=== PATIENT | male | born 1955 | race Caucasian/White ===

== ENCOUNTER 2024-11-18 18:27 | Emergency (ER) | payer OTHER, SELFPAY ==
[2024-11-18 18:29] VITALS: BMI 29.5
[2024-11-18 18:37] VITALS: BP 156/90
[2024-11-18 18:54] LABS: % Eosinophils 1.1 % (0-6); % Immature Granulocytes 0.3 % (0-0.5); % Lymphocytes 27.2 % (20.5-51.1); % Monocytes 7.5 % (1.7-9.3); % Neutrophils 62.9 % (42.2-75.2); Absolute Basophils 0.1 10^3/uL (0-0.2); Absolute Eosinophils 0.1 10^3/uL (0-0.7); Absolute Lymphocytes 2.5 10^3/uL (1.2-3.4); Absolute Monocytes 0.7 10^3/uL (0.1-0.6); Absolute Neutrophils 5.8 10^3/uL (1.4-6.5); Hematocrit 41.1 % (39.0-52.0); Hemoglobin 14.1 g/dL (13.0-18.0); Mean Corp Hgb Conc. 34.3 g/dL (33.0-37.0); Mean Corpuscular Hgb 33.1 pg (27.0-31.0); Mean Corpuscular Volume 96.5 fL (80.0-94.0); Mean Platelet Volume 9.2 fL (7.4-10.4); Nucleated Red Blood Cells % 0 % (-); Platelet Count 364 10^3/uL (130-400); Red Blood Cell Count 4.26 10^6/uL (4.70-6.10); Red Cell Dist. Width 12.6 % (11.5-14.5); White Blood Cell Count 9.3 10^3/uL (4.8-10.8)
[2024-11-18 19:00] VITALS: BP 118/88
[2024-11-18 19:16] LABS: ALT (SGPT) 35 U/L (0-50); AST (SGOT) 42 U/L (17-59); Albumin 5.1 g/dl (3.5-5.0); Alkaline Phosphatase 75 U/L (38-126); Blood Urea Nitrogen 16 mg/dl (9-20); Calcium 9.7 mg/dl (8.4-10.2); Carbon Dioxide 21 mmol/L (22-30); Chloride 100 mmol/L (98-107); Estimated Creatinine Clearance > 125 ml/min; Glucose 115 mg/dl (70-99); Potassium 4.1 mmol/L (3.5-5.1); Sodium 138 mmol/L (135-145); Total Bilirubin 0.3 mg/dl (0.2-1.3); eGFR > 60.00
--- NOTE | 2024-11-18 20:22 | ED.MUSCINJ ---
HPI-Injury
General
Chief Complaint: Fall
Source: patient
Exam Limitations: none
Time Seen by Provider: 11/18/24 19:14
Nursing documentation reviewed up to this point in time: agreed with
History of Present Illness-Injury
Is this injury a work related problem?: No
Is pt an associate of [facility]/[place]?: No
Initial Injury comments:
Patient to ED after fall. States he was attempting to transfer from wheelchair to chair and left leg gave out. States he slid to ground. Denies hitting his head. States he has had pain to left leg from hip to foot since . No prior
work-up. Brought to ED via EMS. Hemiplegia from CVA 2016
Past History
Past History
ED Past Medical History: Arrthythmia (Atrial fibrillation), Asthma, CVA (05/14/2017) and HTN
ED Past Surgical History: Orthopedic (Cervical fusion) and Other (Right carotid artery stent)
Social History
Tobacco: Non-smoker
Alcohol: None
Drug: None
Personal:
Living: with family
Employment: Employed
Family History
Family History: Other (Noncontributory)
Review of Systems
Review of Systems
Allergies reviewed?: Yes
All Other Systems: ROS reviewed and negative except as documented in HPI and ROS
Constitutional: Reports no symptoms
EENT: Reports no symptoms
Respiratory: Reports no symptoms
Cardiac: Reports no symptoms
ABD/GI: Reports no symptoms
: Reports no symptoms
Musculoskeletal: Reports joint pain (Pain left leg hip to foot)
Skin: Reports no symptoms
Neurological: Reports no symptoms
Psychiatric: Reports no symptoms
Musculoskeletal Injury Exam
Musculoskeletal Injury Exam
Left Hip:
Pain with Movement?: Moderate
Tender to palpation?: None
Soft tissue swelling?: None
External deformity and angulation?: None
Joint effusion?: None
Hematoma-local bleeding into tissue?: None
Crepitus with movement?: No
Malalignment/deformity?: No
Range of motion: Limited (hemiplegia)
Distal skin color and temperature: normal-warm & good color
Capillary Refill: normal
Normal distal neurovascular exam?: Yes
Left Knee:
Pain with Movement?: Moderate
Tender to palpation?: None
External deformity and angulation?: None
Joint effusion?: None
Contusion?: Mild
Hematoma-local bleeding into tissue?: Mild
Strain- Sprain- Tear (Connective tissue injury)?: None
Crepitus with movement?: No
Joint instability?: No
Malalignment/deformity?: No
Range of motion: Limited (hemiplegia)
Distal skin color and temperature: normal-warm & good color
Capillary Refill: normal
Normal distal neurovascular exam?: Yes
Left Lower Leg:
Pain with Movement?: Mild
Tender to palpation?: None
Soft tissue swelling?: None
External deformity and angulation?: None
Joint effusion?: None
Contusion?: Mild
Hematoma-local bleeding into tissue?: None
Strain- Sprain- Tear (Connective tissue injury)?: None
Crepitus with movement?: No
Joint instability?: No
Malalignment/deformity?: No
Range of motion: Limited (hemiplegia)
Distal skin color and temperature: normal-warm & good color
Capillary Refill: normal
Normal distal neurovascular exam?: Yes
Phy Exam
General Physical Exam
General Presentation: well appearing and mild distress
General age: appears stated age
General Skin: warm
General Habitus: normal
General Mental: alert
General Hydration: appears well hydrated
Musculoskeletal Exam
Musculoskeletal Exam: neuro vasc intact and other (small abrasion to left knee. No left leg joint swelling, no erythema. )
Skin Exam
Skin Exam: normal color, warm/dry and no rash
Psychiatric Exam
Psychiatric Exam: normal mood/affect
Injury Course
Orders/Labs/Results
Orders:
Orders
11/18/24 18:39
Complete Blood Count/With Diff Urgent
Comprehensive Metabolic Panel Urgent
11/18/24 19:20
CR Leg Tibia/fibula Left 2 Vw Urgent
Comment:
Reason For Exam: pain, fall
Femur, Left 2 View [CR Femur - Left Min 2 Vw] Urgent
Comment:
Reason For Exam: fall
Hip, Left 2-3 Views [CR Hip - LT w/wo Pel 2-3 Vw*] Urgent
Comment:
Reason For Exam: fall
Include a pelvis x-ray?: Yes
11/18/24 20:18
Oxycodone [Roxicodone] 5 mg PO NOW STA
Prednisone [Deltasone] 40 mg PO NOW STA
Abnormal Lab Results
11/18/24
18:39
RBC 4.26 L 10^6/uL
(4.70-6.10)
MCV 96.5 H fL
(80.0-94.0)
MCH 33.1 H pg
(27.0-31.0)
Absolute Monos (auto) 0.7 H 10^3/uL
(0.1-0.6)
Carbon Dioxide 21 L mmol/L
(22-30)
Creatinine 0.6 L mg/dL
(0.7-1.3)
Glucose 115 H mg/dl
(70-99)
Albumin 5.1 H g/dl
(3.5-5.0)
11/18/24 18:39
11/18/24 18:39
*Radiology
Radiology exam reviewed: radiology read reviewed
*Pulse Oximetry
Patient hypoxic: no
*Critical Care Note
Total Time (30-74mins, 75-104mins- exclusive of procedures): Not Applicable
Update Note
Update Note:
Patien tto ED for eval after left leg gave out and he slid to floor. Denies hitting his head. Hx of hemiplegia due to CVA in 2016. Paralyzed on let side. Has been having intermittent left leg pain since september. no evidence of fracture on
xrays. No joint sweling or erythema. Discussed radicular pain as possible cause of discomfort. Will try course of prednisone, follow up with PCP on Thursday. Given instructions on s/s to return to ED and he is agreeable to plan.
ED Attending Note
-
Portions of this chart may have been created with voice recognition software.� Occasional wrong word or��sound alike� substitutions may have occurred due to the inherent limitations of voice recognition software.
Discharge Plan
Departure
Patient Disposition: Home (Routine Discharge)
Date of Disposition: 11/18/24
Time of Disposition: 20:18
Patient with high blood pressure during this ER visit?: No
Condition: Good
Covid-19: Not Applicable
Discharge Problem:
Leg pain
Instructions: Contusion (DC), Radiculopathy of the neck and back (including sciatica) - Discharge instructions
Prescriptions:
New
prednisone 10 mg Tablet
See Rx Instructions .ROUTE .COMPLEX Qty: 30 0RF
Rx Instructions:
Take By Mouth:
40 mg daily x3 days, 30 mg daily x3 days,
20 mg daily x3 days, 10 mg daily x3 days.
oxycodone 5 mg capsule
5 mg PO Q4H PRN (Reason: Pain) Qty: 12 0RF
No Action
atorvastatin 40 MG tablet
40 mg PO QPM Qty: 30 0RF
carvedilol 12.5 MG tablet
12.5 mg PO BID
fenofibrate nanocrystallized 48 MG tablet
48 mg PO DAILY
aspirin 81 MG tablet,delayed release (DR/EC)
81 mg PO DAILY
Xarelto 20 MG tablet
20 mg PO DAILY
amlodipine 10 MG tablet
10 mg PO DAILY
hydralazine 100 MG tablet
100 mg PO TID
oxcarbazepine 600 MG tablet
600 mg PO BID
lisinopril 40 MG tablet
40 mg PO DAILY
dofetilide 500 MCG capsule
500 mcg PO Q12
Activity Restrictions/Additional Instructions:
Follow up with your family doctor
Interventions
Interventions:
*Risk Screen - Suicide Last Done: 11/18/24 18:31
*General Assessment Last Done: 11/18/24 18:31
*Neglect/Abuse Screening Last Done: 11/18/24 18:31
ED- Fall Risk Assessment Last Done: 11/18/24 18:36
*ED COVID-19 Vaccine History Last Done: 11/18/24 19:25
*Nursing Disposition Last Done: 11/18/24 22:30
ED-Musculoskeletal Assessment Last Done: 11/18/24 19:25
ED- Neurological Assessment Last Done: 11/18/24 19:25
ED-Skin Assessment Last Done: 11/18/24 19:25
Discharge Date and Time
Discharge Date/Time: 11/18/24 22:30
Print Language: ITALIAN
[2024-11-18] MEDS: DELTASONE 40 MG PO (20:28)
[2024-11-18] MEDS: ROXICODONE 5 MG PO (20:28)
[2024-11-18 20:34] VITALS: BP 142/80
[2024-11-18 22:00] VITALS: BP 126/74
== END 2024-11-18 22:30 | disposition home or self-care (01) ==
LOC: EMR 18:27
PROVIDERS: EMERGENCY PHYSICIAN Student in an Organized Health Care Education/Training Program; FAMILY PHYSICIAN Family Medicine
DX: S80.212A Abrasion, left knee, initial encounter (principal); M79.605 Pain in left leg; W05.0XXA Fall from non-moving wheelchair, initial encounter; I69.359 Hemiplegia and hemiparesis following cerebral infarction affecting unspecified side; I48.91 Unspecified atrial fibrillation; I10 Essential (primary) hypertension; J45.909 Unspecified asthma, uncomplicated
CPT/HCPCS: 99284; 73502; 73552; 73590; 80053; 85025